=== PATIENT | female | born 1965 | race African-American/Black ===

== ENCOUNTER 2016-12-26 15:42 | Emergency (ER) | payer OTHER ==
[~2016-12-26] VITALS: Ht 170.2 cm; Wt 122.5 kg
--- NOTE | ~2016-12-26 | EKG ---
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
[2016-12-26 16:26] LABS: URINE BILIRUBIN NEGATIVE (Negative); URINE BLOOD TRACE (Negative); URINE COLOR YELLOW; URINE GLUCOSE-RANDOM* NEGATIVE (Negative); URINE KETONES NEGATIVE (Negative); URINE NITRITE NEGATIVE (Negative); URINE PROTEIN (DIPSTICK) NEGATIVE (Negative); URINE SPECIFIC GRAVITY >= 1.030 (1.003-1.035); URINE UROBILINOGEN 0.2 E.U./dl (0.2-1.0)
[2016-12-26 16:28] LABS: ABSOLUTE NEUTROPHILS 2.4 thou/uL (1.4-8.2); EOSINOPHILS 2.4 % (0.0-3.0); HEMATOCRIT 40.1 % (37.0-47.0); HEMOGLOBIN 12.5 gm/dL (12.0-15.0); LYMPHOCYTES 42.8 % (24.0-44.0); MCH 22.5 pg (26.0-34.0); MCHC 31.3 g/dL (28.0-37.0); MCV 72.1 fL (80.0-100.0); PLATELET COUNT 215 thou/uL (150-400); POLYS 45.8 % (36.0-66.0); RBC 5.56 mil/uL (4.20-5.00); RDW 15.1 % (10.5-14.5); WBC 5.3 thou/uL (4.0-11.0)
[2016-12-26 16:30] LABS: MANUAL DIFF NO
[2016-12-26 16:40] LABS: ANION GAP 8 mmol/L (7-16); BUN 16 mg/dL (7-18); CALCIUM 9.3 mg/dL (8.5-10.1); CHLORIDE 107 mmol/L (98-107); CO2 26 mmol/L (21-32); GLUCOSE 141 mg/dL (74-106); POTASSIUM 4.1 mmol/L (3.5-5.1); SODIUM 141 mmol/L (136-145)
[2016-12-26 16:51] LABS: ALBUMIN 3.6 g/dL (3.4-5.0); ALKALINE PHOSPHATASE 174 U/L (46-116); NT-PRO BRAIN NAT PEPTIDE 40 pg/mL (<300); SGOT 29 U/L (15-37); SGPT 25 U/L (30-65); TOTAL BILIRUBIN 0.3 mg/dL (<0.1-1.0); TOTAL PROTEIN 8.3 g/dL (6.4-8.2); TROPONIN-I < 0.04 ng/mL (<0.04-0.07)
[2016-12-26] MEDS ORDERED: NORVASC10 MG PO (17:06)
[2016-12-26 17:26] VITALS: BP 162/100
== END 2016-12-26 17:27 | disposition home or self-care (01) ==
LOC: ER 15:42
PROVIDERS: Nurse Practitioner Family
DX: I16.0 Hypertensive urgency (principal); F17.210 Nicotine dependence, cigarettes, uncomplicated; F10.99 Alcohol use, unspecified with unspecified alcohol-induced disorder; F12.10 Cannabis abuse, uncomplicated; Z91.14 Patient's other noncompliance with medication regimen; Z88.8 Allergy status to other drugs, medicaments and biological substances